=== PATIENT | male | born 1990 | race African-American/Black ===

== ENCOUNTER 2018-08-16 10:21 | Emergency (ER) | payer BC, MEDICAID ==
[2018-08-16 11:33] VITALS: BP 147/81
--- NOTE | 2018-08-16 11:45 | UC ---
General HPI - HPI Summary HPI Summary: Here with finance - states yesterday started with fever, sore throat, productive cough and body aches. Last night: Tmax: 101. Just got back from [place]. No abdominal pain. No rash. +Nausea. No vomiting or diarrhea. DId get a flu shot. Meds: reviewed - History of Current Complaint Chief Complaint: UCGeneralIllness Stated Complaint: SORE THROAT,FEVER Time Seen by Provider: 08/16/18 11:36 Pain Intensity: 0 - Allergy/Home Medications Allergies/Adverse Reactions: Allergies Allergy/AdvReac Type Severity Reaction Status Date / Time amoxicillin [From Augmentin] Allergy Hives Verified 08/16/18 11:27 clavulanic acid Allergy Hives Verified 08/16/18 11:27 [From Augmentin] Penicillins Allergy Hives Verified 08/16/18 11:27 Home Medications: Home Medications Ibuprofen TAB* [Advil TAB*] 200 mg PO Q6H PRN 08/16/18 [History Confirmed ] PMH/Surg Hx/FS Hx/Imm Hx Previously Healthy: Yes - Surgical History Surgical History: Yes Surgery Procedure, Year, and Place: Left knee - Family History Known Family History: Positive: Hypertension Negative: Diabetes - Social History Alcohol Use: Rare Substance Use Type: None Smoking Status (MU): Never Smoked Tobacco Review of Systems All Other Systems Reviewed And Are Negative: Yes Constitutional: Positive: Fever, Chills ENT: Positive: Sore Throat Respiratory: Positive: Cough Gastrointestinal: Positive: Nausea Physical Exam Triage Information Reviewed: Yes Appearance: Well-Appearing Vital Signs: Initial Vital Signs Temp 99.6 F 08/16/18 11:29 Pulse 81 08/16/18 11:29 Resp 22 08/16/18 11:29 BP 147/81 08/16/18 11:29 Pulse Ox 99 08/16/18 11:29 Vital Signs Reviewed: Yes ENT: Positive: Pharyngeal erythema, TMs normal Neck: Positive: Supple Respiratory: Positive: Lungs clear, Normal breath sounds Cardiovascular: Positive: RRR, No Murmur Course/Dx - Course Course Of Treatment: This is a 27 yr old with flu like symptoms. Assessment. Nontoxic appearing. Flu: positive. Plan. STart tamiflu as prescribed. COntinue supportive care - ibuprofen and fluids. If symptoms persist or worsen , call PCP for further evaluation. Plan. Continue supportive care. Follow up blood pressure with PCP as it is slightly elevated at todays visit - Diagnoses Provider Diagnosis: Influenza A Discharge - Sign-Out/Discharge Documenting (check all that apply): Patient Departure All imaging exams completed and their final reports reviewed: No Studies - Discharge Plan Condition: Good Disposition: HOME Prescriptions: Oseltamivir CAP* [Tamiflu CAP*] 75 mg PO BID #10 cap Patient Education Materials: Influenza (ED) Referrals: Sindhu Lockwood MD [Primary Care Provider] - Additional Instructions: STart tamiflu as prescribed COntinue supportive care - ibuprofen and fluids If symptoms persist or worsen, call PCP for further evaluation REcommend fiance calling [employer] to get started on prophylaxis - Billing Disposition and Condition Condition: GOOD Disposition: Home
[2018-08-16 11:59] LABS: Influenza A Molecular POSITIVE (Negative)
== END 2018-08-16 12:43 | disposition home or self-care (01) ==
LOC: UCCORT 10:21
DX: J10.1 Influenza due to other identified influenza virus with other respiratory manifestations (principal); Z88.0 Allergy status to penicillin
CPT/HCPCS: 99212; G0463